=== PATIENT | female | born 1985 | race Hispanic/Latino ===

== ENCOUNTER 2018-07-06 22:57 | Emergency (ER) | payer OTHER | END 2018-07-07 00:17 | disposition home or self-care (01) | LOC: EDH 22:57 | DX: J06.9 Acute upper respiratory infection, unspecified (principal) | CPT/HCPCS: 99281 ==

== ENCOUNTER 2024-05-15 06:28 | Emergency (ER) | payer SELFPAY ==
[~2024-05-15] VITALS: Ht 162.6 cm; Wt 69.9 kg
[2024-05-15] MEDS: LACTATED RINGERS 1000ML 1,000 ML IV ONE (06:58)
[2024-05-15] MEDS: PANTOPrazole 40 MG/VIAL IVP ONE (06:58)
--- NOTE | 2024-05-15 07:02 | ERN ---
General Chief Complaint: Nausea,Vomiting,Diarrhea Stated Complaint: WEAKNESS Time Seen by MD: 06:32 Source: patient History of Present Illness Initial Comments This is a 38-year-old female coming in to be evaluated for generalized body weakness nauseousness and diarrhea. Per patient these symptoms began two days ago after eating a meal. Patient also states that she has been having body aches as well. Her diarrhea episodes have slowly subsided but states that she has been in bed all day due to the generalized body weakness. Allergies: Coded Allergies: No Known Allergies (Unverified Allergy, Unknown, 05/15/24) Past Medical History Past Medical History: No Pertinent History Past Surgical History: None ROS Dictation CONSTITUTIONAL: No chills, no fever, weakness, no diaphoresis, malaise. HEAD/FACE: No signs of trauma. EENT: No eye pain, no blurred vision, no tearing, no double vision, no ear pain , no ear discharge, no nose pain, no nasal congestion, no throat pain, no throat swelling, no mouth pain. RESPIRATORY: No cough, no orthopnea, no SOB, no stridor, no wheezing. CARDIOVASCULAR: No chest pain, no edema, no palpitations, no syncope. GASTROINTESTINAL/ABDOMINAL: No abdominal pain, no constipation, no diarrhea, no nausea, no vomiting. GENITOURINARY: No abnormal discharge, no dysuria, no frequent urination, no hematuria. No complaints of pain in the genitals. MUSCULOSKELETAL: No back pain, no gout, no joint pain, no joint swelling, no muscle pain, no muscle stiffness, no neck pain. INTEGUMENTARY: No change in color, no change in hair/nails, no dryness, no lesion, no lumps, no rash. NEUROLOGICAL/PSYCH: No anxiety, not depressed, no emotional problem, no headache, no numbness, no pre-existing deficit, no history of seizures, no tremors, no weakness. HEMATOLOGIC/LYMPHATIC: Not anemic, no history of blood clots, no apparent bleeding, no bruising, glands not swollen. All Systems Negative, Except as Noted. Physical Exam Physical Exam Dictation VITAL SIGNS: Reviewed. GENERAL APPEARANCE: Alert, oriented x3, no acute distress, obese. HEAD AND FACE: Non-traumatic. EYES: PERRL, pink conjunctivas, eyelid no trauma, anterior chamber clear. EARS: Pinnas intact and no signs of trauma or erythema. Ear canals clear and no discharge. TMs no erythema. NOSE: No discharge, no bleeding. OROPHARYNX: Mouth normal, teeth no caries, tongue pink. Pharynx clear, no erythema. Tonsils no exudates, no abscesses noted. Mucous membrane moist. NECK: Supple, non-tender, no thyromegaly, no masses, no JVD, no bruits. BREAST: Deferred. CHEST: No tenderness, no crepitus, no paradoxical movement, no retractions. LUNGS: Clear, well-ventilated, symmetric, no rales, no wheezing, no rhonchi, no stridor, good breath sounds bilaterally. HEART: Regular rate, regular rhythm, no murmur, no gallops. VASCULAR: No peripheral edema. ABDOMEN: Soft, positive bowel sounds, nondistended, no guarding, nontender, no rebound, no masses no hepatomegaly, no splenomegaly, no Santa's sign, no hernias. RECTAL: Deferred. GENITAL: Deferred. NEUROLOGICAL: Normal speech, gross motor function intact, gross sensory function intact. MUSCULOSKELETAL: Neck nontender, full range of motion, back nontender, full range of motion. EXTREMITIES: Nontender, full range of motion. SKIN: Color pink, dry, no turgor, no rash, no lacerations, no abrasions, no contusions. LYMPHATICS: Deferred. Results Laboratory and Microbiology Lab and Micro Result Laboratory Tests Test 05/15/24 06:53 05/15/24 06:55 05/15/24 07:47 Urine Color YELLOW (YELLOW) Urine Appearance CLOUDY (CLEAR) H Urine pH 6.0 (5.0-8.0) Urine Specific [place] 1.034 (1.001-1.031) Urine Protein 50 mg/dL (NEGATIVE) H Urine Glucose (UA) NEGATIVE mg/dL (NEGATIVE) Urine Ketones 10 mg/dL (NEGATIVE) H Urine Occult Blood NEGATIVE (NEGATIVE) Urine Nitrate NEGATIVE (NEGATIVE) Urine Bilirubin NEGATIVE mg/dL (NEGATIVE) Urine Urobilinogen 2.0 mg/dL (0.2-1.0) H Urine Leukocyte Esterase NEGATIVE Piyush/uL Urine RBC 2-5 /HPF (0-1) H Urine WBC 2-5 /HPF (0-1) H Urine Squamous Epithelial Cells MANY /HPF (0-2) Urine Bacteria MOD /HPF (None Seen) White Blood Count 4.4 K/uL (4.8-10.8) L Red Blood Count 4.53 MIL/uL (4.00-5.50) Hemoglobin 13.4 g/dL (12.0-16.0) Hematocrit 39.3 % (36-48) Mean Corpuscular Volume 86.8 fL (79-99) Mean Corpuscular Hemoglobin 29.6 pg (27.0-33.0) Mean Corpuscular Hemoglobin Concent 34.1 g/dL (32.0-36.0) Red Cell Distribution Width 12.2 % (11.0-15.5) Platelet Count 152 K/uL (130-400) Mean Platelet Volume 11.0 fL (7.5-10.5) H Immature Granulocyte % (Auto) 0.7 % (0-1) Neutrophils (%) (Auto) 81.8 % (40.0-77.0) H Lymphocytes (%) (Auto) 6.1 % (21.0-51.0) L Monocytes (%) (Auto) 10.0 % (3.0-13.0) Eosinophils (%) (Auto) 0.7 % (0.0-8.0) Basophils (%) (Auto) 0.7 % (0.0-5.0) Neutrophils # (Auto) 3.6 K/uL (1.8-7.7) Lymphocytes # (Auto) 0.3 K/uL (1.0-4.8) L Monocytes # (Auto) 0.4 K/uL (0.1-1.0) Eosinophils # (Auto) 0.03 K/uL (0.00-0.70) Basophils # (Auto) 0.03 K/uL (0.00-0.20) Absolute Immature Granulocyte (auto 0.03 K/uL (0-1) Nucleated Red Blood Cells 0.0 % (0.0-0.19) Sodium Level 136 mmol/L (136-145) Potassium Level 3.5 mmol/L (3.5-5.1) Chloride Level 100 mmol/L (101-111) L Carbon Dioxide Level 28 mmol/L (21-32) Blood Urea Nitrogen 12 mg/dL (7-18) Creatinine 0.7 mg/dL (0.5-1.0) Glomerular Filtration Rate Calc 113 mL/min (>90) Random Glucose 105 mg/dL (70-105) Total Calcium 8.4 mg/dL (8.5-10.1) L Total Bilirubin 1.6 mg/dL (0.2-1.0) H Aspartate Amino Transf (AST/SGOT) 27 U/L (10-37) Alanine Aminotransferase (ALT/SGPT) 29 U/L (12-78) Alkaline Phosphatase 73 U/L (50-136) Total Creatine Kinase 74 U/L (21-232) Total Protein 7.0 g/dL (6.0-8.3) Albumin 3.7 g/dL (3.5-5.0) Lipase 50 U/L (16-77) Human Chorionic Gonadotropin, Quant 0 mIU/mL (0-5) Influenza Type A Antigen Negative For Type A Influenza Type B Antigen Negative For Type B SARS-CoV-2, RNA, NAAT NEGATIVE SARS CoV-2 Labs Reviewed?: Yes EKG/XRAY/US/CT/MRI EKG Comment 05/15/2024 time 6:53 a.m. Ventricular rate 86 Sinus rhythm [place] [address] wave elevation or depression MDM CC: GBW, n/v/d. Historian: patient Comorbidities: none Limitations by social determinates of health: uninsured. Ddx: flu, gastroenteritis, dehydration, electrolyte abnormality, other VSS EKG (independently interpreted by me): NSR, rate 86, normal axis, good RWP, intervals WNL, no STEMI. Labs (independently interpreted by me ): Leukopenia 4.4 K, left shift no bands. Chemistry unremarkable, liver enzymes unremarkable, lipase unremarkable. Urinalysis unremarkable. Flu and SARS negative. No imaging indicated. Treatment in ED: 1L LR, protonix IV, zofran IV. Patient's symptoms are consistent with a gastroenteritis or flu-like illness. No indication for antibiotics or admission at this time. Patient was stable. We will DC. ED Course Orders Procedure Category Date Status Time Cbc With Differential LAB 05/15/24 In Process 06:32 Comprehensive LAB 05/15/24 Complete Metabolic Panel 06:32 Hcg,Quantitative LAB 05/15/24 Complete 06:32 Urinalysis Profile LAB 05/15/24 Complete 06:32 12 Lead Ekg Tracing- EKG 05/15/24 Complete Technical 06:32 Lactated Ringers PHA 05/15/24 Complete 1000ml (Lactated 07:00 Pantoprazole 40mg Inj PHA 05/15/24 Complete (Protonix 40mg Inj 07:00 Creatine Kinase, Total LAB 05/15/24 Complete 06:32 Lipase LAB 05/15/24 Complete 06:32 Covid Rna Naat LAB 05/15/24 Complete 06:59 Influenza Type A & B, LAB 05/15/24 Complete Rapid 06:59 Ondansetron 4mg Inj PHA 05/15/24 Complete (Zofran 4mg Inj) 07:30 Current Medications Medications (Trade) Dose Ordered Sig/Ramin Route PRN Reason Start Time Stop Time Status Last Admin Dose Admin Lactated Ringer's 1,000 ml @ 0 mls/hr ONCE ONCE IV 05/15/24 07:00 05/15/24 07:01 DC 05/15/24 06:58 Ondansetron HCl (zoFRAN 4MG INJ) 4 mg ONCE ONCE IVP 05/15/24 07:30 05/15/24 07:31 DC 05/15/24 07:50 Pantoprazole Sodium (PROTonix 40MG INJ) 40 mg ONCE ONCE IVP 05/15/24 07:00 05/15/24 07:01 DC 05/15/24 06:58 Vital Signs Date Time Temp Pulse Resp B/P (MAP) Pulse Ox O2 Delivery O2 Flow Rate FiO2 05/15/24 07:58 97.7 81 17 123/73 99 Room Air* 0 21 05/15/24 06:42 98.4 97 18 140/82 97 Room Air* 0 05/15/24 06:37 98.1 97 18 141/81 99 DX & DISP Disposition: Discharge Departure Impression: Primary Impression: Gastroenteritis Condition: Stable Scripts Ondansetron (Ondansetron Odt) 4 Mg Tab.rapdis 1 TAB PO Q6HPRN PRN for nausea/vomiting for 3 Days, #9 TAB 0 Refills Prov: LAYLA MULTANI DO 05/15/24 Dicyclomine HCl (Bentyl) 20 Mg Tab 1 TAB PO TID for irritable bowel symptoms for 10 Days, #30 TAB 0 Refills Prov: LAYLA MULTANI DO 05/15/24 Additional Instructions: Your symptoms are consistent with a gastroenteritis. This is often a viral infection or food toxicity that will clear on its own. Your vital signs have been stable in the ER. Your lab work ( CBC, BMP, liver function tests, lipase, hCG, urinalysis ) is Stable. You received IV fluids, IV Protonix, and IV Zofran here in the ER. I have prescribed Bentyl to use for abdominal cramping. I have prescribed ondansetron dissolvable tabs to use for nausea and vomiting. Be sure to drink plenty of liquids. An electrolyte solution such as Gatorade or Pedialyte has a good choice. Start with the BRAT (bananas, rice, applesauce, toast ) diet. Advance her diet slowly as tolerated. You can also take [id number] Tylenol as needed for pain. 1000 mg 4 times per day. Please follow up with your primary doctor in 48 hours for re-evaluation if you continue with symptoms. Return to the emergency department as needed. Referrals: SELF,REFERRAL (PCP) MIRI WESTON MD May 15, 2024 07:02 LALYA MULTANI DO May 15, 2024 09:35
--- NOTE | 2024-05-15 07:06 | EKG ---
[facility] Test Date: 2024-05-15 Test Time: 06:53:06 Pat Name: GUILLERMO AYALA Department: ED Room: Gender: F Cell Tender: 1081 : 1985 Requested By: MIRI WESTON Order Number: [id number] Reading MD: Manjit Brown Measurements Intervals [place] Rate: 86 P: 24 AL: 139 QRS: 42 QRSD: 65 T: 44 QT: 358 QTc: 428 Interpretive Statements Sinus rhythm No previous ECG available for comparison Electronically Signed On 05-15-2024 20:02:29 [employer] by Manjit Brown Please click the below link to view image of tracing.
[2024-05-15 07:25] LABS: BASOPHILS # (AUTO) 0.03 K/uL (0.00-0.20); BASOPHILS % (AUTO) 0.7 % (0.0-5.0); EOSINOPHILS # (AUTO) 0.03 K/uL (0.00-0.70); EOSINOPHILS % (AUTO) 0.7 % (0.0-8.0); HEMATOCRIT 39.3 % (36-48); IMMATURE GRANULOCYTE ABSOLUTE 0.03 K/uL (0-1); LYMPHOCYTES # (AUTO) 0.3 K/uL (1.0-4.8); LYMPHOCYTES % (AUTO) 6.1 % (21.0-51.0); MEAN CORPUSCULAR HEMOGLOBIN 29.6 pg (27.0-33.0); MEAN CORPUSCULAR HGB CONC 34.1 g/dL (32.0-36.0); MEAN CORPUSCULAR VOLUME 86.8 fL (79-99); MONOCYTES # (AUTO) 0.4 K/uL (0.1-1.0); NEUTROPHILS # (AUTO) 3.6 K/uL (1.8-7.7); NEUTROPHILS % (AUTO) 81.8 % (40.0-77.0); PLATELET COUNT (AUTO) 152 K/uL (130-400); RED BLOOD CELL COUNT(AUTO) 4.53 MIL/uL (4.00-5.50); RED CELL DISTRIBUTION WIDTH 12.2 % (11.0-15.5); WHITE BLOOD COUNT (AUTO) 4.4 K/uL (4.8-10.8)
[2024-05-15 07:43] LABS: ALBUMIN 3.7 g/dL (3.5-5.0); BILIRUBIN,TOTAL 1.6 mg/dL (0.2-1.0); CREATININE 0.7 mg/dL (0.5-1.0); POTASSIUM 3.5 mmol/L (3.5-5.1)
[2024-05-15 07:43] LABS: APPEARANCE,URINE CLOUDY (CLEAR); BILIRUBIN,URINE NEGATIVE (NEGATIVE); COLOR,URINE YELLOW (YELLOW); GLUCOSE, URINE (UA) NEGATIVE (NEGATIVE); KETONES,URINE 10 mg/dL (NEGATIVE); LEUKOCYTE ESTERASE ,URINE NEGATIVE Leu/uL (NEGATIVE); NITRATE,URINE NEGATIVE (NEGATIVE); OCCULT BLOOD,URINE NEGATIVE (NEGATIVE); PROTEIN,URINE 50 mg/dL (NEGATIVE)
[2024-05-15 07:50] LABS: ADD UA MICROSCOPIC YES
[2024-05-15] MEDS: ondanSETRON 4MG INJ IVP ONE (07:50)
[2024-05-15 07:53] LABS: BACTERIA,URINE MOD /HPF (None Seen); MUCUS,URINE FEW LPF (None Seen); SQUAMOUS EPITHELIAL CELL,UR MANY /HPF (0-2)
[2024-05-15 09:05] LABS: SARS-CoV-2, RNA, NAAT NEGATIVE SARS CoV-2 (NEGATIVE)
[2024-05-15 09:09] LABS: INFLUENZA TYPE A Negative For Type A (NEGATIVE); INFLUENZA TYPE B Negative For Type B (NEGATIVE)
[2024-05-15] MEDS ORDERED: DICY20TA2 PO (09:35)
[2024-05-15] MEDS ORDERED: ONDA-243 PO (09:35)
[2024-05-15 09:53] VITALS: BP 112/72; PULSE 85; RESP 18; TEMP 98.3; O2SAT 99
== END 2024-05-15 09:50 | disposition home or self-care (01) ==
LOC: EDH 06:28
DX: K52.9 Noninfective gastroenteritis and colitis, unspecified (principal); R10.2 Pelvic and perineal pain; Z20.822 Contact with and (suspected) exposure to COVID-19
CPT/HCPCS: 99284; 96374; 96361; 87635; 96375; 82550; 80053; 84702; 83690; 85025; 87804 ×2; 81001; 36415; 93005; J7120; J2405; J2470

== ENCOUNTER 2024-05-18 12:31 | Emergency (ER) | payer SELFPAY ==
[~2024-05-18] VITALS: Ht 162.6 cm; Wt 63.5 kg
[~2024-05-18 12:31] MED LIST: DICY20TA2 PO; ONDA-243 PO
[2024-05-18 13:56] LABS: ADD UA MICROSCOPIC YES; APPEARANCE,URINE CLEAR (CLEAR); BILIRUBIN,URINE NEGATIVE (NEGATIVE); COLOR,URINE YELLOW (YELLOW); GLUCOSE, URINE (UA) NEGATIVE (NEGATIVE); KETONES,URINE 40 mg/dL (NEGATIVE); LEUKOCYTE ESTERASE ,URINE NEGATIVE Leu/uL (NEGATIVE); NITRATE,URINE NEGATIVE (NEGATIVE); OCCULT BLOOD,URINE NEGATIVE (NEGATIVE); PH,URINE 5.5 (5.0-8.0); PROTEIN,URINE 10 mg/dL (NEGATIVE); UROBILINOGEN,URINE 0.2 mg/dL (0.2-1.0)
[2024-05-18 14:00] LABS: BASOPHILS # (AUTO) 0.02 K/uL (0.00-0.20); BASOPHILS % (AUTO) 0.6 % (0.0-5.0); EOSINOPHILS # (AUTO) 0.04 K/uL (0.00-0.70); EOSINOPHILS % (AUTO) 1.2 % (0.0-8.0); HEMATOCRIT 37.7 % (36-48); IMMATURE GRANULOCYTE ABSOLUTE 0.01 K/uL (0-1); LYMPHOCYTES # (AUTO) 1.2 K/uL (1.0-4.8); LYMPHOCYTES % (AUTO) 37.4 % (21.0-51.0); MEAN CORPUSCULAR HEMOGLOBIN 29.3 pg (27.0-33.0); MEAN CORPUSCULAR HGB CONC 33.7 g/dL (32.0-36.0); MEAN CORPUSCULAR VOLUME 87.1 fL (79-99); MONOCYTES # (AUTO) 0.3 K/uL (0.1-1.0); MONOCYTES % (AUTO) 8.3 % (3.0-13.0); NEUTROPHILS # (AUTO) 1.7 K/uL (1.8-7.7); NEUTROPHILS % (AUTO) 52.2 % (40.0-77.0); PLATELET COUNT (AUTO) 167 K/uL (130-400); RED BLOOD CELL COUNT(AUTO) 4.33 MIL/uL (4.00-5.50); RED CELL DISTRIBUTION WIDTH 12.4 % (11.0-15.5); WHITE BLOOD COUNT (AUTO) 3.3 K/uL (4.8-10.8)
[2024-05-18 14:00] LABS: BACTERIA,URINE FEW /HPF (None Seen); MUCUS,URINE RARE LPF (None Seen); RBC,URINE 0-1 /HPF (0-1); SQUAMOUS EPITHELIAL CELL,UR MOD /HPF (0-2); WBC,URINE 0-1 /HPF (0-1)
[2024-05-18 14:18] LABS: ALBUMIN 3.7 g/dL (3.5-5.0); BILIRUBIN,DIRECT 0.1 mg/dL (0.0-0.3); BILIRUBIN,TOTAL 0.6 mg/dL (0.2-1.0); CREATININE 0.5 mg/dL (0.5-1.0); MAGNESIUM 1.6 mg/dL (1.80-2.40); POTASSIUM 3.7 mmol/L (3.5-5.1); TOTAL PROTEIN, SERUM 6.9 g/dL (6.0-8.3)
[2024-05-18 14:33] LABS: BAND NEUTROPHILS % (MANUAL) 8 % (0-2); EOSINOPHILS % (MANUAL) 4 % (1-6); LYMPHOCYTES % (MANUAL) 44 % (22-44); MAN.DIFF COMMENT-IMPRESSION MANUAL DIFFERENTIAL; MONOCYTES % (MANUAL) 2 % (2-9); PLATELET MORPHOLOGY COMMENT ADEQUATE; SEGMENTED NEUTROPHILS % 42 % (40-70); TOTAL CELLS COUNTED 100; WBC MORPHOLOGY CONSISTENT W/DIFF
[2024-05-18] MEDS: FAMOTIDINE 20MG VIAL IV ONE (14:51)
[2024-05-18] MEDS: ondanSETRON 4MG INJ IVP ONE (14:52)
[2024-05-18] MEDS: 0.9%NACL 1000ML 1,000 ML IV ONE (14:52)
--- NOTE | 2024-05-18 15:08 | ERN ---
General Chief Complaint: Abdominal Pain Stated Complaint: RETURNING PT Time Seen by MD: 12:33 Time Seen by Midlevel: 12:33 Source: patient History of Present Illness Initial Comments The patient is a 38-year-old female with no significant past medical history presenting to the emergency department for evaluation following multiple episodes of diarrhea. The patient states she started with diarrhea proximally six days ago. She was seen in our emergency department several days ago and was discharged with a diagnosis of gastroenteritis. She states that yesterday was the 1st day where she had a normal bowel movement. She denies any episodes of diarrhea today but wanted further evaluation since she started cramping all over her body today. Patient was concerned that she may be dehydrated. Otherwise the patient has no other concerns at this time. Allergies: Coded Allergies: No Known Allergies (Unverified Allergy, Unknown, 05/15/24) Home Meds Active Scripts Ondansetron (Ondansetron Odt) 4 Mg Tab.rapdis, 1 TAB PO Q6HPRN PRN for nausea/vomiting for 3 Days, #9 TAB 0 Refills Prov:LAYLA MULTANI DO 05/15/24 Dicyclomine HCl (Bentyl) 20 Mg Tab, 1 TAB PO TID for irritable bowel symptoms for 10 Days, #30 TAB 0 Refills Prov:LAYLA MULTANI DO 05/15/24 Past Medical History Past Medical History: No Pertinent History Past Surgical History: None Female( History) LMP: May 11, 2024 ROS Dictation CONSTITUTIONAL: Negative except for HPI HEAD/FACE: Negative except for HPI EENT: Negative except for HPI RESPIRATORY: Negative except for HPI GASTROINTESTINAL/ABDOMINAL: Negative except for HPI GENITOURINARY: Negative except for HPI MUSCULOSKELETAL: Negative except for HPI INTEGUMENTARY: Negative except for HPI NEUROLOGICAL/PSYCH: Negative except for HPI HEMATOLOGIC/LYMPHATIC: Negative except for HPI All Systems Negative, Except as noted above. 13 point review of systems assessed and all negative except for above. Physical Exam Physical Exam Dictation Vital Signs reviewed General Appearance: Alert, oriented x 3, no acute distress, well developed, nourished. Head and Face: non-traumatic. Eyes: PERRL, pink conjunctivas, eyelid no trauma, anterior chamber with arcus senilis. Ears: Pinnas intact and no signs of trauma or erythema ear canals clear and no discharge TM no erythema Nose: No discharge, no bleeding. Oropharynx: Mouth normal, tongue pink, pharynx clear,no erythema, tonsils no exudates, no abscesses noted, mucous membrane moist Neck: Supple, non-tender, no thyromegaly, no masses, no JVD, no bruits Breast:Deferred Chest:No tenderness, no crepitus, no paradoxical movement, no retractions Lungs:Clear, well-ventilated, symmetric, no rales, no wheezing, no rhonchi, no stridor, good breath sounds bilaterally Heart: Regular rate, regular rhythm, no murmur, no gallops Vascular: no peripheral edema, Abdomen: Soft, positive bowel sounds, nondistended, no guarding, nontender, no rebound, no masses no hepatomegaly, no splenomegaly, no Santa's sign, no hernias. Rectal: Deferred Genital: Deferred Neurological: Normal speech, motor function intact, sensory function intact Musculoskeletal: Neck nontender, full range of motion, back nontender, full range of motion, Extremities: nontender, full range of motion Skin: Color pink, dry, no turgor, no rash, no lacerations, no abrasions, no contusions. Lymphatic: Deferred Results Laboratory and Microbiology Lab and Micro Result Laboratory Tests Test 05/18/24 13:36 05/18/24 13:39 Urine Color YELLOW (YELLOW) Urine Appearance CLEAR (CLEAR) Urine pH 5.5 (5.0-8.0) Urine Specific [place] 1.028 (1.001-1.031) Urine Protein 10 mg/dL (NEGATIVE) H Urine Glucose (UA) NEGATIVE mg/dL (NEGATIVE) Urine Ketones 40 mg/dL (NEGATIVE) H Urine Occult Blood NEGATIVE (NEGATIVE) Urine Nitrate NEGATIVE (NEGATIVE) Urine Bilirubin NEGATIVE mg/dL (NEGATIVE) Urine Urobilinogen 0.2 mg/dL (0.2-1.0) Urine Leukocyte Esterase NEGATIVE Piyush/uL Urine RBC 0-1 /HPF (0-1) Urine WBC 0-1 /HPF (0-1) Urine Squamous Epithelial Cells MOD /HPF (0-2) Urine Bacteria FEW /HPF (None Seen) White Blood Count 3.3 K/uL (4.8-10.8) L Red Blood Count 4.33 MIL/uL (4.00-5.50) Hemoglobin 12.7 g/dL (12.0-16.0) Hematocrit 37.7 % (36-48) Mean Corpuscular Volume 87.1 fL (79-99) Mean Corpuscular Hemoglobin 29.3 pg (27.0-33.0) Mean Corpuscular Hemoglobin Concent 33.7 g/dL (32.0-36.0) Red Cell Distribution Width 12.4 % (11.0-15.5) Platelet Count 167 K/uL (130-400) Mean Platelet Volume 10.8 fL (7.5-10.5) H Immature Granulocyte % (Auto) 0.3 % (0-1) Neutrophils (%) (Auto) 52.2 % (40.0-77.0) Lymphocytes (%) (Auto) 37.4 % (21.0-51.0) Monocytes (%) (Auto) 8.3 % (3.0-13.0) Eosinophils (%) (Auto) 1.2 % (0.0-8.0) Basophils (%) (Auto) 0.6 % (0.0-5.0) Neutrophils # (Auto) 1.7 K/uL (1.8-7.7) L Lymphocytes # (Auto) 1.2 K/uL (1.0-4.8) Monocytes # (Auto) 0.3 K/uL (0.1-1.0) Eosinophils # (Auto) 0.04 K/uL (0.00-0.70) Basophils # (Auto) 0.02 K/uL (0.00-0.20) Absolute Immature Granulocyte (auto 0.01 K/uL (0-1) Segmented Neutrophils % 42 % (40-70) Band Neutrophils % 8 % (0-2) H Lymphocytes % (Manual) 44 % (22-44) Monocytes % (Manual) 2 % (2-9) Eosinophils % (Manual) 4 % (1-6) Nucleated Red Blood Cells 0.0 % (0.0-0.19) Differential Comment MANUAL DIFFERENTIAL White Cell Morphology Comment CONSISTENT W/DIFF Platelet Morphology Comment ADEQUATE Red Blood Cell Morphology ANISO 1+ Sodium Level 141 mmol/L (136-145) Potassium Level 3.7 mmol/L (3.5-5.1) Chloride Level 105 mmol/L (101-111) Carbon Dioxide Level 30 mmol/L (21-32) Blood Urea Nitrogen 11 mg/dL (7-18) Creatinine 0.5 mg/dL (0.5-1.0) Glomerular Filtration Rate Calc 122 mL/min (>90) Random Glucose 84 mg/dL (70-105) Total Calcium 8.9 mg/dL (8.5-10.1) Magnesium Level 1.60 mg/dL (1.80-2.40) L Total Bilirubin 0.6 mg/dL (0.2-1.0) Direct Bilirubin 0.1 mg/dL (0.0-0.3) Aspartate Amino Transf (AST/SGOT) 36 U/L (10-37) Alanine Aminotransferase (ALT/SGPT) 47 U/L (12-78) Alkaline Phosphatase 63 U/L (50-136) Total Protein 6.9 g/dL (6.0-8.3) Albumin 3.7 g/dL (3.5-5.0) Lipase 58 U/L (16-77) Serum Test, Qualitative NEGATIVE (NEGATIVE) Labs Reviewed?: Yes MDM MDM: Differential diagnosis: Gastroenteritis, diarrhea, electrolyte abnormality There are no social concerns with this patient. Prescription drug management Prescriptions will include: None Medical management and examination interpretation discussions were had by me with other qualified healthcare professionals as indicated for the patient's care. ED Course Orders Procedure Category Date Status Time Cbc With Differential LAB 05/18/24 Complete 12:42 Basic Metabolic Panel LAB 05/18/24 Complete 12:42 Hepatic Function Panel LAB 05/18/24 Complete 12:42 Lipase LAB 05/18/24 Complete 12:42 Urinalysis Profile LAB 05/18/24 Complete 12:42 Testing, LAB 05/18/24 Complete Serum Hcg 12:42 Magnesium LAB 05/18/24 Complete 12:42 Manual Differential LAB 05/18/24 Complete 13:39 0.9%Nacl 1000ml (Ns PHA 05/18/24 Complete 1000ml) 15:00 Ondansetron 4mg Inj PHA 05/18/24 Complete (Zofran 4mg Inj) 15:00 Famotidine 20mg Vial PHA 05/18/24 Complete (Pepcid 20mg Vial) 15:00 Current Medications Medications (Trade) Dose Ordered Sig/Ramin Route PRN Reason Start Time Stop Time Status Last Admin Dose Admin Famotidine (Pepcid 20mg Vial) 20 mg ONCE ONCE IV 05/18/24 15:00 05/18/24 15:01 DC 05/18/24 14:51 Ondansetron HCl (zoFRAN 4MG INJ) 4 mg ONCE ONCE IVP 05/18/24 15:00 05/18/24 15:01 DC 05/18/24 14:52 Sodium Chloride 1,000 ml @ 0 mls/hr ONCE ONCE IV 05/18/24 15:00 05/18/24 15:01 DC 05/18/24 14:52 Vital Signs Date Time Temp Pulse Resp B/P (MAP) Pulse Ox O2 Delivery O2 Flow Rate FiO2 05/18/24 13:23 97.7 81 18 122/86 100 Room Air DX & DISP Disposition: Discharge Departure Impression: Primary Impression: Diarrhea Condition: Stable Additional Instructions: Your blood work today is unremarkable. Your electrolytes are normal. You were given IV fluids in the emergency department. Your symptoms are most likely related to a gastroenteritis. You will need to follow up with your primary care doctor for repeat evaluation. Return to the ER if you develop any new or worsening symptoms. Referrals: SELF,REFERRAL (PCP) Time of Disposition: 15:19 I have reviewed the case, and I agree with, Diagnosis and Plan I performed the substantive portion of the visit. I have reviewed and personally made and approve the management plan that is documented in the note by myself or the ANNEMARIE. I acknowledge for responsibility for the patient's management plan. OLEKSANDR SALES May 18, 2024 15:08
[2024-05-18 15:36] VITALS: BP 113/56; PULSE 94; RESP 15; TEMP 97.8; O2SAT 95
--- NOTE | 2024-05-18 15:58 | NUR ---
PT AAOX4, PT STABLE NO DISTRESS, VITALS WNL NO C/O PAIN. PT GIVEN INSTRUCTIONS FOR HOME TO SEE PCP IN 2-3 DAYS. PT STATES SHE WILL DRIVE HERSELF HOME. NO NEW MEDICATIONS AT THIS TIME.
[2024-05-18] MEDS ORDERED: METR-172 PO (16:15)
== END 2024-05-18 16:33 | disposition home or self-care (01) ==
LOC: EDH 12:31 → EEVIPCON 12:31 → EDH 16:33
DX: R19.7 Diarrhea, unspecified (principal); Z79.899 Other long term (current) drug therapy
CPT/HCPCS: 99284; 96374; 96375; 80076; 83735; 80048; 84703; 83690; 85025; 81001; 36415; J3490; J7030; J2405